=== PATIENT | male | born 1950 | race Caucasian/White ===

== ENCOUNTER 2016-09-20 13:55 | Emergency (ER) | payer SELFPAY ==
[~2016-09-20] VITALS: Ht 177.8 cm; Wt 95.2 kg
[2016-09-20 13:57] VITALS: BP 154/83
== END 2016-09-20 15:15 | disposition home or self-care (01) ==
LOC: ED 13:55
DX: S83.8X2A Sprain of other specified parts of left knee, initial encounter (principal); Z96.653 Presence of artificial knee joint, bilateral; W03.XXXA Other fall on same level due to collision with another person, initial encounter; Y93.89 Activity, other specified; Y92.830 Public park as the place of occurrence of the external cause; Y99.8 Other external cause status
CPT/HCPCS: J1885